=== PATIENT | male | born 1950 | race Caucasian/White ===

== ENCOUNTER 2023-09-26 14:13 | Emergency (ER) | payer MEDICARE, OTHER, SELFPAY ==
[2023-09-26 14:15] VITALS: BP 140/96; PULSE 60; RESP 16; TEMP 37
--- NOTE | 2023-09-26 15:10 | DI.RAD_ITS ---
Exam(s) XR ELBOW LT COMPLETE EXAM: XR ELBOW LT COMPLETE CLINICAL HISTORY: fall. lac. TECHNIQUE: 2D digital imaging was performed of the left elbow. Four images were obtained. AP, late ral and oblique views were obtained. COMPARISON: No exams were available for comparison FINDINGS: BONES: There is a tiny 2 mm density adjacent to the medial epicondyle. This may represent a small fo r avulsed fracture fragment or soft tissue calcification. Please correlate with the patient's site o f pain. No bony destructive lesion is seen. JOINTS: The elbow is normally aligned. No joint effusion is seen. SOFT TISSUE: Normal. IMPRESSION: 2 mm density adjacent to the medial epicondyle which may represent a tiny avulsed fracture fragment o r soft tissue calcification. Please correlate clinically. DATA REPOSITORY: RADIATION DOSE DELIVERED:
--- NOTE | 2023-09-26 15:42 | ED.GENADUL_ITS ---
Discharge Plan Disposition Patient Disposition: Home Condition: Stable Discharge Details Clinical Impression: Avulsion fracture of medial epicondyle of humerus, Laceration of left elbow ED Provider: Asher Cagle Home Meds and New Rx's Prescriptions: New cephalexin 500 mg capsule 500 mg PO TID Qty: 9 0RF Continued aspirin [Adult Low Dose Aspirin] 81 mg tablet,delayed release (DR/EC) 81 mg PO DAILY Entresto 24-26 mg tablet 1 tab PO BID paroxetine HCl 10 mg tablet 10 mg PO DAILY omeprazole 40 mg capsule,delayed release(DR/EC) 40 mg PO DAILY terazosin 5 mg capsule 5 mg PO DAILY baclofen 10 mg tablet 10 mg PO Q4H PRN Discharge Instructions Instructions: Laceration (ED) Additional Instructions: Please keep wound clean, dry and protected. Change dressing daily. Be sure to use sterile dressing. Monitor for signs of infection including increased warmth, swelling, discharge or pain. Take antibiotic as prescribed. Sutures should be removed in 12 to 14 days. Please contact your primary care physician to arrange follow-up. Return to the ER immediately for any worsening or new concerning symptoms. Discharge Data Discharge Date/Time-TO BE ENTERED AT DEPARTURE: 09/26/23 16:44 HPI General Date/Time Provider Initiated Documentation: 09/26/23 14:15 . Limitations to Documentation: no limitations . Information obtained by: patient . HPI Narrative: 72-year-old male presents after fall last night down the stairs, sustaining injury to his left elbow with laceration. Patient did not sustain any other injury during fall. Patient was initially seen at [facility] and sent to the ER given concern for deep laceration and visualization of bone. Related Data Home Medications ?Medication ?Instructions ?Recorded ?Confirmed aspirin 81 mg tablet,delayed 81 mg PO DAILY 09/26/23 09/26/23 release (Adult Low Dose Aspirin) baclofen 10 mg tablet 10 mg PO Q4H PRN 09/26/23 09/26/23 cephalexin 500 mg capsule 500 mg PO TID #9 caps 09/26/23 omeprazole 40 mg capsule,delayed 40 mg PO DAILY 09/26/23 09/26/23 release paroxetine HCl 10 mg tablet 10 mg PO DAILY 09/26/23 09/26/23 sacubitril 24 mg-valsartan 26 mg 1 tab PO BID 09/26/23 09/26/23 tablet (Entresto) terazosin 5 mg capsule 5 mg PO DAILY 09/26/23 09/26/23 Previous Rx's ?Medication ?Instructions ?Recorded cephalexin 500 mg capsule 500 mg PO TID #9 caps 09/26/23 Allergies Allergy/AdvReac Type Severity Reaction Status Date / Time amitriptyline AdvReac Intermediate Headache Verified 09/26/23 14:48 gabapentin AdvReac Intermediate Headache Verified 09/26/23 14:48 pregabalin (From Lyrica) AdvReac Intermediate Headache Verified 09/26/23 14:48 tallwin AdvReac Intermediate Hyper Uncoded 09/26/23 14:48 General Stated Complaint: Laceration GAIL: 3 Review of Systems Musculoskeletal Musculoskeletal: Reports as per HPI, Denies numbness and Denies tingling Neurologic Neurologic: Denies numbness and Denies tingling Exam Const General: cooperative and no acute distress HENMT Head: normocephalic and atraumatic Resp Auscultation: clear to auscultation bilaterally, no rales, no rhonchi and no wheezes Cardio Rate: regular rate and not tachycardic Rhythm: regular rhythm GI Palpation: soft, not firm, no guarding, not rigid and nontender Back/Spine/Pelvis Cervical Spine: No cervical spinal tenderness Thoracic/Lumbar Spine: No thoracic spinal tenderness and No lumbar spinal tenderness Neuro General: patient alert, patient awake and tone normal Other: Left upper extremity distal sensation and motor intact Extrem Left upper extremity: elbow/forearm Details: abnormal to inspection, tenderness Location: of the lateral epicondyle and of the medial epicondyle, normal ROM and laceration (2cm posterior elbow, full-thickness extending into fascia, no bone seen, oozing blood) Course Vital Signs Vital signs: Vital Signs Temperature 37.0 C 09/26/23 14:15 Pulse 60 09/26/23 14:15 Respiratory Rate 16 09/26/23 14:15 Blood Pressure 140/96 H 09/26/23 14:15 Temperature 37.0 C 09/26/23 14:15 Temperature Source Tympanic 09/26/23 14:15 Pulse 60 09/26/23 14:15 Respiratory Rate 16 09/26/23 14:15 Respiratory Effort Normal, Non-Labored 09/26/23 14:55 Blood Pressure 140/96 H 09/26/23 14:15 Blood Pressure Position Sitting 09/26/23 14:15 Oxygen Delivery Method Room Air 09/26/23 14:15 Oxygen Flow Rate 0 09/26/23 14:15 Pain Level 3 09/26/23 14:15 Medical Decision Making 72-year-old male presents after fall last night down the stairs, sustaining injury to his left elbow with laceration. 1540 --x-ray of the left elbow was reviewed and interpreted by radiology: 2 mm density adjacent to the medial epicondyle which may represent a tiny avulsed fracture fragment or soft tissue calcification. Please correlate clinically Consider open fracture. I will discuss case with orthopedics. 1551 --Case was discussed with Dr. Moran, he recommends primary closure and 3 days of antibiotics and outpatient follow-up. Usual customary discharge instructions were reviewed with the patient. Quality:SDOH Health Related Social Needs: No Data to Display [facility] Social History Smoking risk assessment performed?: No Substance use type: does not use Do you feel safe at home: Yes Do you feel safe in your relationship?: Yes
[2023-09-26 16:44] VITALS: BP 138/75; PULSE 88; RESP 16; TEMP 36.7; O2SAT 98
[2023-09-26] MEDS: Cephalexin 500 MG CAP PO (16:44)
== END 2023-09-26 16:44 | disposition home or self-care (01) ==
PROVIDERS: Emergency Provider Student in an Organized Health Care Education/Training Program
DX: S42.44 Fracture (avulsion) of medial epicondyle of humerus (principal); W10.8XXA Fall (on) (from) other stairs and steps, initial encounter
CPT/HCPCS: 12001; 99283; 73080